=== PATIENT | female | born 1970 | race Caucasian/White ===

== ENCOUNTER → 2017-05-03 | Outpatient (CLI) | payer BC ==
[~2017-05-03] MED LIST: Amoxicillin500 MG PO; CLAR500 PO; Hydrocodone-Ap1 EA23 PO; OMEPRAZOLE DR PO; OMEPRAZOLE MAGN20 MG PO; SUCR1 PO
[2017-05-05 12:55] LABS: HPV Genotype 16 Not Detected (NOTDET); HPV Genotype 18 Not Detected (NOTDET)
[2017-05-10 15:22] LABS: HPV High Risk Other Detected (NOTDET)
== END | disposition home or self-care (01) ==
LOC: LAB 13:51
PROVIDERS: Obstetrics & Gynecology
DX: Z01.419 Encounter for gynecological examination (general) (routine) without abnormal findings (principal)
CPT/HCPCS: 87624; G0123

== ENCOUNTER → 2017-06-20 | Outpatient (CLI) | payer BC | END | disposition home or self-care (01) | LOC: PLD 12:42 → LAB SHORT 12:42 | DX: R87.810 Cervical high risk human papillomavirus (HPV) DNA test positive (principal); R87.612 Low grade squamous intraepithelial lesion on cytologic smear of cervix (LGSIL) | CPT/HCPCS: 88305 ==

== ENCOUNTER → 2021-03-25 | Outpatient (CLI) | payer BC | END | disposition home or self-care (01) | LOC: LAB 07:45 → LAB SHORT 07:45 → EDSTATUS 03-24 12:45 → LAB FUT 03-24 12:45 | DX: R10.84 Generalized abdominal pain (principal) | CPT/HCPCS: 87338 ==

== ENCOUNTER → 2021-07-07 | Outpatient (CLI) | payer BC ==
[2021-07-08 18:06] LABS: HPV 16 Negative (Negative); HPV 18 Negative (Negative); HPV OTHER HR TYPES Positive (Negative)
== END | disposition home or self-care (01) ==
LOC: LAB SHORT 12:37
PROVIDERS: Obstetrics & Gynecology
DX: Z12.4 Encounter for screening for malignant neoplasm of cervix (principal)
CPT/HCPCS: 87624; G0123

== ENCOUNTER 2022-09-23 06:51 | Day surgery (SDC) | payer BC ==
[~2022-09-23] VITALS: Ht 167.6 cm; Wt 107.9 kg
[2022-09-23] VITALS (18 sets, daily range): BP systolic 102–134; BP diastolic 57–78
[2022-09-23] MEDS ORDERED: Synthroid200 MCG PO (07:50)
[2022-09-23] MEDS ORDERED: METF500 PO (07:51)
--- NOTE | 2022-09-23 09:09 | NUR ---
PRE-OP NOTE Ambulatory in Day Surgery Patient confirms NPO status and agrees with scheduled surgery. Pre-Op teaching done. Pt verbalizes understanding.
[2022-09-23 15:23] LABS: BASOPHILS ABSOLUTE AUTO 0.02 K/mm3 (0.00-0.23); BASOPHILS PERCENT AUTO 0 % (0-2); EOSINOPHILS ABSOLUTE AUTO 0.01 K/mm3 (0.00-0.68); EOSINOPHILS PERCENT AUTO 0 % (0-6); Hematocrit 37.1 % (33.0-51.0); Hemoglobin 12.2 g/dL (11.5-16.0); IMMATURE GRAN ABSOLUTE AUTO 0.05 K/mm3 (0.00-0.10); IMMATURE GRAN PERCENT AUTO 0 % (0-1); LYMPHOCYTES ABSOLUTE AUTO 0.47 K/mm3 (0.84-5.20); LYMPHOCYTES PERCENT AUTO 3 % (21-46); MONOCYTES ABSOLUTE AUTO 0.21 K/mm3 (0.16-1.47); MONOCYTES PERCENT AUTO 1 % (4-13); Mean Corpuscular HGB 29.5 pg (26.0-34.0); Mean Corpuscular HGB Conc 32.9 g/dL (31.5-36.5); Mean Corpuscular Volume 90 fL (80-100); Mean Platelet Volume 10.8 fL (9.1-12.4); NEUTROPHILS ABSOLUTE AUTO 13.91 K/mm3 (1.96-9.15); NEUTROPHILS PERCENT AUTO 95 % (41-73); Platelet Count 221 K/mm3 (150-400); RDW Coefficient Variation 13.9 % (11.7-14.2); RDW Standard Deviation 45.1 fL (35.1-46.3); Red Blood Cell Count 4.14 M/mm3 (3.80-5.20); White Blood Cell Count 14.67 K/mm3 (4.00-11.30)
--- NOTE | 2022-09-23 18:45 | NUR ---
SHIFT SUMMARY PT A&OX4, VSS/RA, CHUN PO, VOIDING, AMB TO BRP/UP TO CHAIR, PAIN MANAGED WITH NORCO AND TORADOL. S/P LAP ASSISTED VAG HYSTER, 3 STERIS DRY/INTACT, PERIPAD WITH MIN BLOOD. PLAN FOR OVERNIGHT STAY AND DC TOMORROW. WILL REPORT TO ONCOMING NOC RN.
[2022-09-23] MEDS ORDERED: Percocet 5-3251 EACH PO (19:03)
[2022-09-23] MEDS ORDERED: MOTRIN IB200 MG PO (19:19)
[2022-09-24 00:20] VITALS: BP 103/58
[2022-09-24 04:07] VITALS: BP 102/56
--- NOTE | 2022-09-24 05:53 | NUR ---
SHIFT SUMMARY AOX4. POD 1-LAP ASSISTED VAGINAL HYSTER. VSS. DENIES N/V, TOLERATING REG DIET. HYPOACTIVE BT. ABD 4-6/10 PAIN, MEDICATED PER EMAR ORDER. 3 STERI STRIPS SCATTERED T/O ABD. PT USING JACOB PADS c MINIAL BLEEING & NO CLOTS. CALL LIGHT IN REACH, WILL MONITOR.
[2022-09-24 08:14] VITALS: BP 103/59
--- NOTE | 2022-09-24 08:46 | NUR ---
PATIENT DISCHARGED TO HOME ACCOMPANIED BY SPOUSE. IV SALINE LOCK REMOVED WITHOUT INCIDENT. VERBALIZED UNDERSTANDING OF D/C INSTRUCTIONS. OFF UNIT VIA W/C AT 0845. NO PERSONAL BELONGINGS LEFT BEHIND IN ROOM.
--- NOTE | 2022-09-24 08:48 | NUR ---
PATIENT VERBALIZED UNDERSTANDING OF OXYGEN SAFETY AND PROHIBITION OF USE OF TOBACCO PRODUCTS WHILE IN HOSPITAL.
== END 2022-09-24 08:44 | disposition home or self-care (01) ==
LOC: ORSCMMR 06:51 → ORD 09:45 → MEDS 13:04 → ORSCMMR 09-24 08:44
PROVIDERS: Obstetrics & Gynecology
PROC: 0DNU4ZZ Release Omentum, Percutaneous Endoscopic Approach (ICD-10-PCS; principal; 2022-09-23 08:45)
PROC: 0UT9FZZ Resection of Uterus, Via Natural or Artificial Opening With Percutaneous Endoscopic Assistance (ICD-10-PCS; principal; 2022-09-23 08:45)
PROC: 0UT7FZZ Resection of Bilateral Fallopian Tubes, Via Natural or Artificial Opening With Percutaneous Endoscopic Assistance (ICD-10-PCS; principal; 2022-09-23 08:45)
PROC: 0UT1FZZ Resection of Left Ovary, Via Natural or Artificial Opening With Percutaneous Endoscopic Assistance (ICD-10-PCS; principal; 2022-09-23 08:45)
DX: R93.89 Abnormal findings on diagnostic imaging of other specified body structures (principal); N95.0 Postmenopausal bleeding; N83.02 Follicular cyst of left ovary; N73.6 Female pelvic peritoneal adhesions (postinfective); E03.9 Hypothyroidism, unspecified; Z79.899 Other long term (current) drug therapy; E66.9 Obesity, unspecified; Z68.38 Body mass index [BMI] 38.0-38.9, adult
CPT/HCPCS: 36415; 82947; 85025; 88108; 88307; A9270; J0690; J1100; J1170; J1885; J2250; J2405; J2704; J3010; J7120